=== PATIENT | female | born 1985 | race Caucasian/White ===

== ENCOUNTER 2020-03-02 16:00 | Outpatient (RCR) | payer BC ==
[2005-03-14 18:31] VITALS: BP 132/78
[2020-02-21 16:54] VITALS: BP 123/79; PULSE 70; TEMP 98.9
[2020-02-24 16:00] VITALS: BP 138/66; PULSE 97; TEMP 98
[2020-02-27 16:05] VITALS: BP 123/80; PULSE 78; TEMP 98.2
--- NOTE | 2020-02-27 17:00 | NUR ---
pT C/O PAIN DURING INFUSION.NO REDNESS,NO EDEMA OBSERVED.int REMOVED,NEW int STARTED IN RIGHT F/A AND INFUSION RESUMED.
[~2020-03-02] VITALS: Ht 167.6 cm; Wt 50.2 kg
[2020-03-02 16:38] VITALS: BP 121/68; PULSE 72; TEMP 98
== END 2020-03-02 16:58 | disposition home or self-care (01) ==
LOC: EUO 16:00
DX: D50.9 Iron deficiency anemia, unspecified (principal)
CPT/HCPCS: J2916

== ENCOUNTER 2020-10-14 14:58 | Outpatient (RCR) | payer BC ==
[2005-03-14 18:31] VITALS: BP 132/78
[~2020-10-14] VITALS: Ht 167.6 cm; Wt 52.2 kg
[2020-10-14 16:27] VITALS: BP 126/79; PULSE 71; TEMP 98.8
--- NOTE | 2020-10-14 17:02 | NUR ---
Pt reported hives after infusion completed.Vitals obtained as follows 154/106,pulse 88,100% on room air.Dr Cardenas notified.Per Dr Cardenas pt to go to ED.
--- NOTE | 2020-10-14 17:03 | NUR ---
Pt taken to Ed,report to Amber Massey.
--- NOTE | 2020-10-15 19:24 | NUR ---
Spoke with pt.per pt she is not going to continue iron infusions.
== END 2020-10-15 19:24 | disposition home or self-care (01) ==
LOC: EUO 14:58
DX: D50.9 Iron deficiency anemia, unspecified (principal)
CPT/HCPCS: J2916

== ENCOUNTER 2020-10-14 17:01 | Emergency (ER) | payer BC ==
[2005-03-14 18:31] VITALS: BP 132/78
[~2020-10-14] VITALS: Ht 165.1 cm; Wt 48.6 kg
[2020-10-14 17:06] VITALS: TEMP 96.3
[2020-10-14 17:53] VITALS: BP 119/71; PULSE 82
== END 2020-10-14 18:02 | disposition home or self-care (01) ==
LOC: COL.ER 17:01
DX: E61.1 Iron deficiency (principal); Z88.6 Allergy status to analgesic agent